=== PATIENT | female | born 1970 | race African-American/Black ===

== ENCOUNTER 2017-07-18 13:10 | Emergency (ER) | payer OTHER ==
[~2017-07-18] VITALS: Ht 162.6 cm; Wt 75.0 kg
[2017-07-18] MEDS ORDERED: DEXTROSE 50% WATER 50ML SYRINGE IV ONE ×3 (13:39→13:46)
[2017-07-18 14:39] LABS: HEMATOCRIT. 41.3 % (36.0-48.0); HEMOGLOBIN. 13.4 g/dL (12.0-16.0); MEAN CORPUSCULAR HEMOGLOBIN 31.9 pg (28.0-32.0); MEAN CORPUSCULAR VOLUME 98.1 fL (81.0-99.0); RED BLOOD CELL COUNT 4.21 mill/uL (4.2-5.4); RED CELL DISTRIBUTION WIDTH 14.4 % (11.6-14.6)
[2017-07-18 14:49] LABS: CARBON DIOXIDE 34 mEq/L (21-32); CHLORIDE 95 mEq/L (98-107); PHOSPHORUS 3.5 mg/dL (2.5-4.9); TROPONIN I < 0.02 ng/mL (0.00-0.04)
[2017-07-18] MEDS ORDERED: ONDANSETRON 4MG ODT PO ONE (15:00)
[2017-07-18 15:47] LABS: INR 1.2; PARTIAL THROMBOPLASTIN TIME 26.5 sec (23.4-31.0); PROTHROMBIN TIME 12.9 sec (9.4-11.6)
[2017-07-18] MEDS ORDERED: ACETAMINOPHEN 325MG TABLET PO PRN (16:00)
[2017-07-18] MEDS ORDERED: ONDANSETRON HCL 4MG/2ML VIAL IV PRN (16:00)
[2017-07-18] MEDS ORDERED: DIPHENHYDRAMINE 50MG/ML VIAL IV PRN (16:00)
[2017-07-18 18:06] VITALS: BP 154/89
[2017-07-19] MEDS ORDERED: ASPIRIN 81MG EC TABLET PO SCH ×2 (09:00)
== END 2017-07-18 18:08 | disposition left against medical advice (07) ==
LOC: ER 13:26 → EDSEX 13:26 → EDBEDREQTM 14:08 → EDBEDREQ 14:08 → SUPCPDRO 15:47 → CANBEDREQ 16:26 → ER 18:08
DX: E11.649 Type 2 diabetes mellitus with hypoglycemia without coma (principal); G93.41 Metabolic encephalopathy; E11.22 Type 2 diabetes mellitus with diabetic chronic kidney disease; I12.0 Hypertensive chronic kidney disease with stage 5 chronic kidney disease or end stage renal disease; N18.6 End stage renal disease; H54.7 Unspecified visual loss; Z99.2 Dependence on renal dialysis
CPT/HCPCS: 36415; 71010; 80053; 82962; 83690; 83735; 84100; 84443; 84484; 85025; 85610; 85730; 93005; 96374; 99291; Q0162; Z7610